=== PATIENT | female | born 1960 | race Caucasian/White ===

== ENCOUNTER 2019-09-06 12:11 | Emergency (ER) | payer SELFPAY ==
[~2019-09-06] VITALS: Ht 175.3 cm; Wt 140.9 kg
[2019-09-06 12:20] VITALS: TEMP 98.1
[2019-09-06] MEDS ORDERED: PRINIVIL5 MG (12:27)
[2019-09-06] MEDS ORDERED: AMOXICILLIN 8751 TAB PO (12:41)
[2019-09-06 13:05] VITALS: BP 139/76; PULSE 80
== END 2019-09-06 13:05 | disposition home or self-care (01) ==
LOC: COL.ER 12:11
DX: S61.452A Open bite of left hand, initial encounter (principal); I10 Essential (primary) hypertension; F17.210 Nicotine dependence, cigarettes, uncomplicated; Z90.710 Acquired absence of both cervix and uterus; Z98.51 Tubal ligation status; Z23 Encounter for immunization; W55.01XA Bitten by cat, initial encounter; Y92.59 Other trade areas as the place of occurrence of the external cause